=== PATIENT | male | born 1935 | race Asian ===

== ENCOUNTER 2018-07-30 11:49 | Emergency (ER) | payer MEDICARE, OTHER ==
[2018-07-30] MEDS ORDERED: Albuterol/Ipratropium NEB.SOL* Albuterol 2.5 MG/Ipratropium 0.5 MG 3 ML INH ONE ×2 (12:07→14:41)
[2018-07-30] MEDS ORDERED: methylPREDNISolone 125 MG* 2 ML VIAL IV ONE (12:07)
--- NOTE | 2018-07-30 12:07 | ED ---
Shortness of Breath - HPI Summary HPI Summary: An 82 y/o male presents to [facility] with a chief complaint of SOB today. At triage he rated his pain as a 3/10 in severity. Lying down aggravates his SOB and sitting up alleviates his SOB. He is a nonsmoker. He reports taking baby aspirin every night. Hx of aneurysm. SHx of bypass 3 years ago and valve replacement. Vital signs while in room HR:100 bpm, O2 Sat on 4L O2: 90 when lying down and 95 when sitting up, BP: 188/126. - History of Current Complaint Chief Complaint: EDShortnessOfBreath Time Seen by Provider: 07/30/18 11:55 Hx Obtained From: Patient Onset/Duration: Sudden Onset, Lasting Hours Timing: Constant Current Severity: Mild Dyspnea At: Rest Aggrevating Factors: Other - lying down Alleviating Factors: Upright Position Associated Signs & Symptoms: Negative - Allergy/Home Medications Allergies/Adverse Reactions: Allergies Allergy/AdvReac Type Severity Reaction Status Date / Time MS Sulfa Antibiotics Allergy Rash Verified 12/18/15 08:04 [Sulfa Antibiotics] enviromental Allergy Runny Nose Uncoded 12/18/15 08:04 Home Medications: Home Medications Aspirin EC TAB* [Ecotrin EC Low Dose 81 MG*] 81 mg PO DAILY 07/30/18 [History Confirmed 07/30/18] Atorvastatin* [Lipitor*] 10 mg PO BEDTIME 07/30/18 [History Confirmed 07/30/18] Budesonide Flexhaler 180 (NF) [Pulmicort Flexhaler 180 mcg/act (NF)] 2 puff INH BID 07/30/18 [History Confirmed 07/30/18] Epleronone (NF) [Inspra (NF)] 25 mg PO EVERY OTHER DAY 07/30/18 [History Confirmed 07/30/18] Potassium Chlor TAB* [Klor Con ER TAB*] 20 meq PO EVERY OTHER DAY 07/30/18 [ History Confirmed 07/30/18] dilTIAZem HCl [Tiazac] 120 mg PO DAILY 07/30/18 [History Confirmed 07/30/18] PMH/Surg Hx/FS Hx/Imm Hx Endocrine/Hematology History: Denies: Hx Diabetes, Hx Thyroid Disease Cardiovascular History: Reports: Hx Aneurysm, Hx Congestive Heart Failure - 2014 post surgery, Hx Hypertension Respiratory History: Denies: Hx Asthma, Hx Chronic Obstructive Pulmonary Disease (COPD) GI History: Reports: Other GI Disorders - hx of diverticulitis Denies: Hx Ulcer - Cancer History Cancer Type, Location and Year: prostate - Surgical History Surgery Procedure, Year, and Place: prostate surgery, aortic valve replacement, aneurysm,CABG Infectious Disease History: Denies: Hx Clostridium Difficile, Hx Hepatitis, Hx Human Immunodeficiency Virus (HIV), Hx of Known/Suspected MRSA, Hx Shingles, Hx Tuberculosis, Hx Known/ Suspected VRE, Hx Known/Suspected VRSA, History Other Infectious Disease, Traveled Outside the [place] in Last 30 Days - Family History Known Family History: Negative: Hypertension - Social History Alcohol Use: None Substance Use Type: Reports: None Smoking Status (MU): Never Smoked Tobacco Review of Systems Negative: Fever Positive: Shortness Of Breath All Other Systems Reviewed And Are Negative: Yes Physical Exam - Summary Physical Exam Summary: Appearance: The patient is well-nourished in no acute distress and in no acute pain. Skin: The skin is warm and dry and skin color reflects adequate perfusion. HEENT: The head is normocephalic and atraumatic. The pupils are equal and reactive. The conjunctivae are clear and without drainage. Nares are patent and without drainage. Mouth reveals moist mucous membranes and the throat is without erythema and exudate. The external ears are intact. The ear canals are patent and without drainage. The tympanic membranes are intact. Neck: The neck is supple with full range of motion and non-tender. There are no carotid bruits. There is slight JVD. Respiratory: Chest is non-tender. Lungs sounds tight with rare wheezes. No crackles. Cardiovascular: Heart is borderline tachycardic. There is no murmur or rub auscultated. There is no peripheral edema and pulses are symmetrical and equal. Abdomen: The abdomen is soft and non-tender. There are normal bowel sounds heard in all four quadrants and there is no organomegaly palpated. Musculoskeletal: There is no back tenderness noted. Extremities are non-tender with full range of motion. There is good capillary refill. There is no peripheral edema or calf tenderness elicited. Neurological: Patient is alert and oriented to person, place and time. The patient has symmetrical motor strength in all four extremities. Cranial nerves are grossly intact. Deep tendon reflexes are symmetrical and equal in all four extremities. Psychiatric: The patient has an appropriate affect and does not exhibit any anxiety or depression. Triage Information Reviewed: Yes Vital Signs On Initial Exam: Initial Vitals Temp Pulse Resp BP Pulse Ox 97.6 F 102 22 0/0 90 07/30/18 11:56 07/30/18 11:56 07/30/18 11:56 07/30/18 11:56 07/30/18 11:56 Vital Signs Reviewed: Yes Diagnostics - Vital Signs Vital Signs Temp Pulse Resp BP Pulse Ox 07/30/18 11:56 97.6 F 102 22 0/0 90 - Laboratory Result Diagrams: 07/30/18 12:14 07/30/18 12:14 Lab Statement: Any lab studies that have been ordered have been reviewed, and results considered in the medical decision making process. - Radiology CXR Radiology Interpretation Completed By: Radiologist Summary of Radiographic Findings: NO ACTIVE CARDIOPULMONARY DISEASE IS NOTED. ED physician has reviewed this imaging report. - EKG 12:02 Cardiac Rate: NL - 98 bpm EKG Rhythm: Sinus Rhythm Summary of EKG Findings: Normal sinus rhythm at 98 bpm 1st degree block prolonged QTc Re-Evaluation - Re-Evaluation First Eval Re-Evaluation Time: 13:46 Change: Improved Comment: Patient feels better. He will be taken off of O2 to see how he feels without O2. Second Eval Re-Evaluation Time: 14:41 Change: Unchanged Comment: Patient walking around with HR around 102 and O2 sat around 87 Third Eval Re-Evaluation Time: 15:50 Change: Improved Comment: Patient is feeling better. Course/Dx - Course Course Of Treatment: Mr. Plummer had the sudden onset of shortness of breath today. On initial evaluation he denied any pulmonary problems but stated that he had cardiac problems. He is shortness breath was exacerbated by lying down and he was better when he was up moving around. On exam he was clearly short of breath and tachycardic. He had no peripheral edema. He had mild JVD and no HJR. Lungs sounds were diminished with an increased EI and rare wheezes consistent with a bronchospastic problem. He was given duo neb and Solu-Medrol while chest x-ray and labs were obtained. He improved significantly and his workup was consistent with a bronchospastic problem. At that point he revealed that he was on 3 different nebulizers at home although they all sound related if he scalenectomy correctly. They were Xopenex, Ventolin and ProAir. He remained mildly tachycardic when ambulated with his pulse ox around 90-93 at rest and dropping to 88 with ambulation. I recommended that we keep him overnight in the hospital but he was adamant that he would not stay. I discharged him with a prescription for a Medrol Dosepak and an Atrovent inhaler to go with the albuterol he has at home. - Diagnoses Provider Diagnoses: Bronchospasm Discharge - Sign-Out/Discharge Documenting (check all that apply): Patient Departure - DC Patient Received Moderate/Deep Sedation with Procedure: No - Discharge Plan Condition: Stable Disposition: HOME Prescriptions: Ipratropium HFA INHALER(NF) [Atrovent Hfa Inhaler(NF)] 1 puff INH Q6H #1 mdi methylPREDNISolone [Medrol Dosepak 4 MG*] 4 mg PO .SEE GALINA INSTRUCTION #1 tab Patient Education Materials: Bronchospasm (ED) Referrals: Jamshid Sinclair MD [Primary Care Provider] - As Soon As Possible Additional Instructions: Return to the ED if you experience any new or worsening symptoms. - Billing Disposition and Condition Condition: STABLE Disposition: Home - Attestation Statements Document Initiated by Scribe: Yes Documenting Scribe: Keo Chou Provider For Whom Mani is Documenting (Include Credential): Chito Mcduffie MD Scribe Attestation: IKeo, scribed for Chito Mcduffie MD on 07/30/18 at 1748. Scribe Documentation Reviewed: Yes Provider Attestation: The documentation as recorded by the Keo morales accurately reflects the service I personally performed and the decisions made by me, Chito Mcduffie MD Status of Scribe Document: Viewed
[2018-07-30 12:25] LABS: ABS Basophils 0.1 10^3/ul (0-0.2); ABS Eosinophils 0.2 10^3/ul (0-0.6); ABS Lymphocytes 0.4 10^3/ul (1.0-4.8); ABS Monocytes 0.7 10^3/ul (0-0.8); ABS Nucleated RBC 0 10^3/ul; Eosinophil % 3.1 %; Hematocrit 49 % (36-46); Hemoglobin 16.5 g/dL (14.0-18.0); Lymphocyte % 6.6 %; Mean Corpuscular HGB Conc 33 g/dL (31-36); Mean Corpuscular Hemoglobin 29 pg (27-31); Mean Corpuscular Volume 88 fL (80-94); Mean Platelet Volume 8.1 fL (7.4-10.4); Nucleated Red Blood Cells % 0; Platelet Count 161 10^3/uL (150-450); Red Blood Count 5.61 10^6 /uL (4.18-5.48); Red Cell Distribution Width 13 % (10.5-15); White Blood Count 6.3 10^3/uL (3.5-10.8)
[2018-07-30 12:34] LABS: INR 1.17 (0.77-1.02)
[2018-07-30 12:41] LABS: Albumin 4.8 g/dL (3.2-5.2); Albumin/Globulin Ratio 1.9 (1-3); BUN/Creatinine Ratio 31.4 (8-20); C Reactive Protein 14.23 mg/L (<8.01); Calcium 9.8 mg/dL (8.6-10.3); EGFR African American 84.2 (>60); EGFR Non-African American 69.6 (>60); Globulin 2.5 g/dL (2-4); Potassium 3.7 mmol/L (3.5-5.0); Total Protein 7.3 g/dL (6.4-8.9)
[2018-07-30 12:42] LABS: Troponin I 0.01 ng/mL (<0.04)
[2018-07-30] MEDS ORDERED: Ipratropium HFA INHALER(NF) (ALTERNATIVE = NEBS) INH ONE (15:46)
[2018-07-30 16:18] VITALS: BP 106/78
== END 2018-07-30 16:36 | disposition home or self-care (01) ==
LOC: ED 11:49
DX: J98.01 Acute bronchospasm (principal); R06.02 Shortness of breath; Z79.82 Long term (current) use of aspirin; Z88.2 Allergy status to sulfonamides; I10 Essential (primary) hypertension; I50.9 Heart failure, unspecified
CPT/HCPCS: 36415; 71045; 80053; 83605; 83880; 84484; 85025; 85379; 85610; 86140; 87040; 93005; 96374; 99284; A9270-GY; J2930